=== PATIENT | male | born 1950 | race Caucasian/White ===

== ENCOUNTER → 2017-06-07 | Outpatient (RCR) | payer OTHER | END | disposition home or self-care (01) | LOC: CR3 05-08 06:00 | PROVIDERS: ATTEND Nurse Practitioner | DX: Z29.8 Encounter for other specified prophylactic measures (principal) ==

== ENCOUNTER 2017-07-07 15:23 | Outpatient (RCR) | payer OTHER | END 2017-07-09 | disposition home or self-care (01) | LOC: CR3 15:23 | PROVIDERS: ATTEND Nurse Practitioner | DX: Z29.8 Encounter for other specified prophylactic measures (principal) ==

== ENCOUNTER 2017-08-07 16:35 | Outpatient (RCR) | payer OTHER | END 2017-08-09 | disposition home or self-care (01) | LOC: CR3 16:35 | PROVIDERS: ATTEND Nurse Practitioner | DX: Z29.8 Encounter for other specified prophylactic measures (principal) ==

== ENCOUNTER 2017-09-08 17:32 | Outpatient (RCR) | payer OTHER | END 2017-09-10 | disposition home or self-care (01) | LOC: CR3 17:32 | PROVIDERS: ATTEND Nurse Practitioner | DX: Z29.8 Encounter for other specified prophylactic measures (principal) ==

== ENCOUNTER → 2017-10-11 | Outpatient (RCR) | payer OTHER | END | disposition home or self-care (01) | LOC: CR3 09-11 14:39 | PROVIDERS: ATTEND Nurse Practitioner | DX: Z29.8 Encounter for other specified prophylactic measures (principal) ==

== ENCOUNTER 2017-11-10 14:08 | Outpatient (RCR) | payer OTHER | END 2017-11-12 | disposition home or self-care (01) | LOC: CR3 14:08 | PROVIDERS: ATTEND Nurse Practitioner | DX: Z29.8 Encounter for other specified prophylactic measures (principal) ==

== ENCOUNTER → 2017-12-13 | Outpatient (RCR) | payer OTHER | END | disposition home or self-care (01) | LOC: CR3 11-13 14:00 | PROVIDERS: ATTEND Nurse Practitioner | DX: Z29.8 Encounter for other specified prophylactic measures (principal) ==

== ENCOUNTER 2018-01-12 14:53 | Outpatient (RCR) | payer OTHER | END 2018-01-14 | disposition home or self-care (01) | LOC: CR3 14:53 | PROVIDERS: ATTEND Nurse Practitioner | DX: Z29.8 Encounter for other specified prophylactic measures (principal) ==

== ENCOUNTER → 2018-02-14 | Outpatient (RCR) | payer OTHER | END | disposition home or self-care (01) | LOC: CR3 01-15 14:00 | PROVIDERS: ATTEND Nurse Practitioner | DX: Z29.8 Encounter for other specified prophylactic measures (principal) ==

== ENCOUNTER 2018-03-16 14:19 | Outpatient (RCR) | payer OTHER | END 2018-03-18 | disposition home or self-care (01) | LOC: CR3 14:19 | PROVIDERS: ATTEND Nurse Practitioner | DX: Z29.8 Encounter for other specified prophylactic measures (principal) ==

== ENCOUNTER → 2018-04-18 | Outpatient (RCR) | payer OTHER | END | disposition home or self-care (01) | LOC: CR3 03-19 14:00 | PROVIDERS: ATTEND Nurse Practitioner | DX: Z29.8 Encounter for other specified prophylactic measures (principal) ==

== ENCOUNTER 2018-05-18 14:53 | Outpatient (RCR) | payer OTHER | END 2018-05-20 | disposition home or self-care (01) | LOC: CR3 14:53 | PROVIDERS: ATTEND Nurse Practitioner | DX: Z29.8 Encounter for other specified prophylactic measures (principal) ==

== ENCOUNTER → 2018-06-20 | Outpatient (RCR) | payer OTHER | END | disposition home or self-care (01) | LOC: CR3 05-21 14:00 | PROVIDERS: ATTEND Nurse Practitioner | DX: Z29.8 Encounter for other specified prophylactic measures (principal) ==

== ENCOUNTER 2018-07-20 13:49 | Outpatient (RCR) | payer OTHER | END 2018-07-22 | disposition home or self-care (01) | LOC: CR3 13:49 | PROVIDERS: ATTEND Nurse Practitioner | DX: Z29.8 Encounter for other specified prophylactic measures (principal) ==

== ENCOUNTER → 2018-08-22 | Outpatient (RCR) | payer OTHER | END | disposition home or self-care (01) | LOC: CR3 07-23 14:00 | PROVIDERS: ATTEND Nurse Practitioner | DX: Z29.8 Encounter for other specified prophylactic measures (principal) ==

== ENCOUNTER 2018-09-21 14:35 | Outpatient (RCR) | payer OTHER | END 2018-09-23 | disposition home or self-care (01) | LOC: CR3 14:35 | PROVIDERS: ATTEND Nurse Practitioner | DX: Z29.8 Encounter for other specified prophylactic measures (principal) ==

== ENCOUNTER → 2018-10-24 | Outpatient (RCR) | payer OTHER | END | disposition home or self-care (01) | LOC: CR3 09-24 14:10 | PROVIDERS: ATTEND Nurse Practitioner | DX: Z29.8 Encounter for other specified prophylactic measures (principal) ==

== ENCOUNTER 2018-11-23 13:59 | Outpatient (RCR) | payer OTHER | END 2018-11-25 | disposition home or self-care (01) | LOC: CR3 13:59 | PROVIDERS: ATTEND Nurse Practitioner | DX: Z29.8 Encounter for other specified prophylactic measures (principal) ==

== ENCOUNTER → 2018-12-26 | Outpatient (RCR) | payer OTHER | END | disposition home or self-care (01) | LOC: CR3 11-26 14:00 | PROVIDERS: ATTEND Nurse Practitioner | DX: Z29.8 Encounter for other specified prophylactic measures (principal) ==

== ENCOUNTER 2019-01-23 14:54 | Outpatient (RCR) | payer OTHER | END 2019-01-27 | disposition home or self-care (01) | LOC: CR3 14:54 | PROVIDERS: ATTEND Nurse Practitioner | DX: Z29.8 Encounter for other specified prophylactic measures (principal) ==

== ENCOUNTER 2019-03-01 17:32 | Outpatient (RCR) | payer OTHER | END 2019-03-03 | disposition home or self-care (01) | LOC: CR3 17:32 | PROVIDERS: ATTEND Nurse Practitioner | DX: Z29.8 Encounter for other specified prophylactic measures (principal) ==

== ENCOUNTER → 2019-04-03 | Outpatient (RCR) | payer OTHER | END | disposition home or self-care (01) | LOC: CR3 03-04 14:00 | PROVIDERS: ATTEND Nurse Practitioner | DX: Z29.8 Encounter for other specified prophylactic measures (principal) ==

== ENCOUNTER 2019-04-22 15:05 | Outpatient (RCR) | payer OTHER | END 2019-05-05 | disposition home or self-care (01) | LOC: CR3 15:05 | PROVIDERS: ATTEND Nurse Practitioner | DX: Z29.8 Encounter for other specified prophylactic measures (principal) ==

== ENCOUNTER → 2020-05-20 | Outpatient (RCR) | payer OTHER | END | disposition home or self-care (01) | LOC: CR3 04-20 14:20 | PROVIDERS: ATTEND Nurse Practitioner | DX: Z29.8 Encounter for other specified prophylactic measures (principal) ==

== ENCOUNTER 2020-06-19 14:24 | Outpatient (RCR) | payer OTHER | END 2020-06-21 | disposition home or self-care (01) | LOC: CR3 14:24 | PROVIDERS: ATTEND Nurse Practitioner | DX: Z29.8 Encounter for other specified prophylactic measures (principal) ==

== ENCOUNTER → 2020-07-22 | Outpatient (RCR) | payer OTHER | END | disposition home or self-care (01) | LOC: CR3 06-22 14:49 | PROVIDERS: ATTEND Nurse Practitioner | DX: Z29.8 Encounter for other specified prophylactic measures (principal) ==

== ENCOUNTER → 2020-08-26 | Outpatient (RCR) | payer OTHER | LOC: CR3 07-27 10:29 | PROVIDERS: ATTEND Nurse Practitioner | DX: Z29.8 Encounter for other specified prophylactic measures (principal) ==

== ENCOUNTER 2020-09-25 13:57 | Outpatient (RCR) | payer OTHER | END 2020-09-27 | LOC: CR3 13:57 | PROVIDERS: ATTEND Nurse Practitioner | DX: Z29.8 Encounter for other specified prophylactic measures (principal) ==

== ENCOUNTER → 2020-10-28 | Outpatient (RCR) | payer OTHER | END | disposition home or self-care (01) | LOC: CR3 09-28 17:27 | PROVIDERS: ATTEND Nurse Practitioner | DX: Z29.8 Encounter for other specified prophylactic measures (principal) ==

== ENCOUNTER 2020-11-27 13:56 | Outpatient (RCR) | payer OTHER | END 2020-11-29 | disposition home or self-care (01) | LOC: CR3 13:56 | PROVIDERS: ATTEND Nurse Practitioner | DX: Z29.8 Encounter for other specified prophylactic measures (principal) ==

== ENCOUNTER 2020-12-28 15:04 | Outpatient (RCR) | payer OTHER | END 2021-01-01 | disposition home or self-care (01) | LOC: CR3 15:04 | PROVIDERS: ATTEND Nurse Practitioner | DX: Z29.8 Encounter for other specified prophylactic measures (principal) ==

== ENCOUNTER 2021-03-05 14:04 | Outpatient (RCR) | payer OTHER | END 2021-03-07 | disposition home or self-care (01) | LOC: CR3 14:04 | PROVIDERS: ATTEND Nurse Practitioner | DX: Z29.8 Encounter for other specified prophylactic measures (principal) ==

== ENCOUNTER → 2021-05-05 | Outpatient (RCR) | payer OTHER | END | disposition home or self-care (01) | LOC: CR3 03-15 15:22 | PROVIDERS: ATTEND Nurse Practitioner | DX: Z29.8 Encounter for other specified prophylactic measures (principal) ==

== ENCOUNTER 2021-07-02 15:20 | Outpatient (RCR) | payer OTHER | END 2021-07-05 | disposition home or self-care (01) | LOC: CR3 15:20 | PROVIDERS: ATTEND Nurse Practitioner | DX: Z29.8 Encounter for other specified prophylactic measures (principal) ==

== ENCOUNTER 2021-08-06 14:44 | Outpatient (RCR) | payer OTHER | END 2021-09-04 | disposition home or self-care (01) | LOC: CR3 14:44 | PROVIDERS: ATTEND Nurse Practitioner | DX: Z29.8 Encounter for other specified prophylactic measures (principal) ==

== ENCOUNTER 2021-12-03 16:10 | Outpatient (RCR) | payer OTHER | END 2021-12-05 | disposition home or self-care (01) | LOC: CR3 16:10 | PROVIDERS: ATTEND Nurse Practitioner | DX: Z29.8 Encounter for other specified prophylactic measures (principal) ==

== ENCOUNTER → 2022-01-05 | Outpatient (RCR) | payer OTHER | END | disposition home or self-care (01) | LOC: CR3 12-06 14:29 | PROVIDERS: ATTEND Nurse Practitioner | DX: Z29.8 Encounter for other specified prophylactic measures (principal) ==

== ENCOUNTER → 2022-03-07 | Outpatient (RCR) | payer OTHER | END | disposition home or self-care (01) | LOC: CR3 01-07 15:09 | PROVIDERS: ATTEND Nurse Practitioner | DX: Z29.8 Encounter for other specified prophylactic measures (principal) ==

== ENCOUNTER 2022-04-29 14:59 | Outpatient (RCR) | payer OTHER | END 2022-05-05 | disposition home or self-care (01) | LOC: CR3 14:59 | PROVIDERS: ATTEND Nurse Practitioner | DX: Z29.8 Encounter for other specified prophylactic measures (principal) ==

== ENCOUNTER 2022-07-01 15:43 | Outpatient (RCR) | payer OTHER | END 2022-07-05 | disposition home or self-care (01) | LOC: CR3 15:43 | PROVIDERS: ATTEND Nurse Practitioner | DX: Z29.8 Encounter for other specified prophylactic measures (principal) ==

== ENCOUNTER 2022-09-02 15:25 | Outpatient (RCR) | payer OTHER | END 2022-09-04 | disposition home or self-care (01) | LOC: CR3 15:25 | PROVIDERS: ATTEND Nurse Practitioner | DX: Z29.8 Encounter for other specified prophylactic measures (principal) ==

== ENCOUNTER → 2022-10-05 | Outpatient (RCR) | payer OTHER | END | disposition home or self-care (01) | LOC: CR3 09-05 15:40 | PROVIDERS: ATTEND Nurse Practitioner | DX: Z29.8 Encounter for other specified prophylactic measures (principal) ==

== ENCOUNTER 2022-11-04 16:26 | Outpatient (RCR) | payer OTHER | END 2022-12-05 | disposition home or self-care (01) | LOC: CR3 16:26 | PROVIDERS: ATTEND Nurse Practitioner | DX: Z01.89 Encounter for other specified special examinations (principal) ==

== ENCOUNTER 2022-12-05 07:57 | Outpatient (CLI) | payer OTHER ==
[~2022-12-05] VITALS: Ht 177.8 cm; Wt 60.3 kg
[2022-12-07] MEDS ORDERED: PRAV10TA PO (09:24)
[2022-12-07] MEDS ORDERED: ALEN70TA80 PO (09:25)
[2022-12-13] MEDS ORDERED: PRAV10TA PO (13:04)
[2022-12-13] MEDS ORDERED: CHOL12509 PO (13:04)
[2022-12-13] MEDS ORDERED: ALEN70TA80 PO (13:04)
[2022-12-13] MEDS ORDERED: CALC600T91 PO (13:04)
[2022-12-13] MEDS ORDERED: CYAN250010 PO (13:04)
[2022-12-13] MEDS ORDERED: VIT1CAPS PO (13:04)
[2022-12-13] MEDS ORDERED: VITA40TA PO (13:04)
[2022-12-13] MEDS ORDERED: TUME1CAP PO (13:04)
[2022-12-13] MEDS ORDERED: ACET600C5 PO (13:04)
== END 2022-12-13 13:15 | disposition home or self-care (01) ==
LOC: PREOP 07:57
PROVIDERS: ATTEND Surgery
DX: Z01.818 Encounter for other preprocedural examination (principal)

== ENCOUNTER → 2022-12-05 | Outpatient (CLI) | payer OTHER ==
[~2022-12-05] VITALS: Ht 180.3 cm; Wt 60.0 kg
[~2022-12-05] MED LIST: ALEN70TA80 PO; PRAV10TA PO
== END | disposition home or self-care (01) ==
LOC: PREOP 05:32
PROVIDERS: ATTEND Specialist
DX: Z01.818 Encounter for other preprocedural examination (principal)

== ENCOUNTER 2022-12-09 09:21 | Day surgery (SDC) | payer OTHER ==
[~2022-12-09] VITALS: Ht 180 cm; Wt 60.0 kg
[2022-12-09 09:45] VITALS: BP 167/86
[2022-12-09] MEDS ORDERED: LIDOCAINE PF 1% 2 ML VIAL IR PRN (10:00)
[2022-12-09] MEDS ORDERED: TIMOLOL 0.5% (CATARACTS) 0.3 ML BTL OU PRN (10:00)
[2022-12-09] MEDS ORDERED: MOXIFLOXACIN OPHTH SOLN 5 MG/ML 0.5 ML SYRINGE OP ONE (10:00)
[2022-12-09] MEDS ORDERED: POVIDONE IODINE OPHTH SOLN 5% 30 ML OP ONE (10:00)
[2022-12-09] MEDS: TETRACAINE 0.5% OPHTH SOLN 5 ML BTL OU PRN ×4 (10:01→10:17)
[2022-12-09] MEDS: PHENYLEPHRINE 10% OPHTH SOLN 5 ML BTL OU SCH ×3 (10:07→10:17)
[2022-12-09] MEDS: TROPICAMIDE 1% OPH SOLN (MYDRIACYL) 15 ML BTL OP SCH ×3 (10:11→10:17)
--- NOTE | 2022-12-09 10:23 | Ophthalmologist Pre-Op Note ---
Pre-Operative Progress Note H&P Reviewed The H&P was reviewed, patient examined and no changes noted. Date H&P Reviewed: Dec 09, 2022 Time H&P Reviewed: 10:23 Pre-Op Dx Cataract, Right Eye ANTOINE LING MD Dec 09, 2022 10:23
[2022-12-09] MEDS ORDERED: MIDAZOLAM INJ 2 MG/2 ML VIAL ONE (10:25)
--- NOTE | 2022-12-09 10:43 | Ophthalmology Operative Report ---
Cataract removal/placement IOL PREOPERATIVE DIAGNOSIS: Cataract Right Eye POSTOPERATIVE DIAGNOSIS: Cataract Right Eye PROCEDURE: Cataract removal and placement of posterior chamber implant, right eye SURGEON: Haim Ling ANESTHESIA: Topical with sedation COMPLICATIONS: None ESTIMATED BLOOD LOSS: Minimal DESCRIPTION OF PROCEDURE: After proper informed consent was obtained, the patient, a 72 male, was taken to the Operating Room and the right eye was anesthetized with tetracaine. The right eye was then prepped and draped in the usual manner. A wire lid speculum was placed. A paracentesis was made at the left hand position. Preservative free lidocaine was injected into the anterior chamber followed by viscoelastic. A clear corneal incision was made in the temporal position. A capsulorrhexis was preformed and the central nuclear and cortical material were removed. The posterior capsule was polished and Markie 21.5 CNA0T0 IOL was placed into the capsular bag. The residual viscoelastic was aspirated and balanced saline solution was injected into the anterior chamber. Moxifloxacin was injected into the anterior chamber. The wound was checked and found to be water tight. The patient tolerated the procedure well without complications. HAIM LING MD Dec 09, 2022 10:43
[2022-12-09 10:57] VITALS: BP 167/86
--- NOTE | 2022-12-09 12:47 | Anesthesia-General Post-Op ---
MAC Patient Condition Mental Status/LOC: Same as Preop Cardiovascular: Satisfactory Nausea/Vomiting: Absent Respiratory: Satisfactory Pain: Controlled Complications: Absent Post Op Complications Complications None Follow Up Care/Instructions Patient Instructions None needed. Anesthesiology Discharge Order Discharge Order Patient is doing well, no complaints, stable vital signs, no apparent adverse anesthesia problems. No complications reported per nursing. DENA CHU CRNA Dec 09, 2022 12:47
== END 2022-12-09 10:58 | disposition home or self-care (01) ==
LOC: SDC 09:21
PROVIDERS: ATTEND Specialist
DX: H25.9 Unspecified age-related cataract (principal); F17.200 Nicotine dependence, unspecified, uncomplicated

== ENCOUNTER 2022-12-16 09:59 | Outpatient (CLI) | payer OTHER ==
[~2022-12-16] VITALS: Ht 180 cm; Wt 60.3 kg
[~2022-12-16 09:59] MED LIST changes: +ACET600C5 PO; +CALC600T91 PO; +CHOL12509 PO; +CYAN250010 PO; +TUME1CAP PO; +VIT1CAPS PO; +VITA40TA PO
[2022-12-20] MEDS ORDERED: PANT40TA2 PO (10:11)
== END 2022-12-16 14:00 | disposition home or self-care (01) ==
LOC: PREOP 09:59
PROVIDERS: ATTEND Specialist
DX: Z01.818 Encounter for other preprocedural examination (principal)

== ENCOUNTER 2022-12-20 07:45 | Day surgery (SDC) | payer OTHER ==
[~2022-12-20] VITALS: Ht 177.3 cm; Wt 60.3 kg
[2022-12-20] MEDS ORDERED: LACTATED RINGERS 1,000 ML 1,000 ML IV STA (07:48)
[2022-12-20] MEDS ORDERED: HURRICAINE EXT TUBE (BENZOCAINE) XX PRN (08:00)
[2022-12-20 08:32] VITALS: BP 143/83
--- NOTE | 2022-12-20 09:02 | Progress Note-Pre Operative ---
Pre-Operative Progress Note Date H&P Reviewed: Dec 20, 2022 Time H&P Reviewed: 09:01 History & Physical: H&P Reviewed, Patient Examed, No changes noted Pre-Operative Diagnosis: Unexplained Weight Loss SANJAY COLIN DO Dec 20, 2022 09:02
[2022-12-20 10:05] VITALS: BP 91/59
--- NOTE | 2022-12-20 10:06 | Progress Note-Post Operative ---
Post-Operative Progess Note Surgeon (s)/Bottom Polisher (s) Surgeon SANJAY COLIN DO Bottom Polisher: n/a Pre-Operative Diagnosis Unexplained Weight Loss Post-Operative Diagnosis Duodenal healing ulcer, diverticulosis, anorectal mucosal change Procedure & Operative Findings Date of Procedure 12/20/22 Procedure Performed/Findings EGD with biopsies, colonoscopy with cold biopsy Anesthesia Type per WEB ENGINEER Estimated Blood Loss Estimated blood loss (mL): none Specimens/Packing Specimens Removed duodenal healing ulcer x1, antrum x1, GE junction x1, anal-rectal junction x1 SANJAY COLIN DO Dec 20, 2022 10:06
--- NOTE | 2022-12-20 10:09 | Discharge Inst-Simple/Standard ---
Discharge Inst-Standard Patient Instructions/Follow Up Plan of Care/Instructions/FU: 2 weeks юлия Activity as Tolerated: Yes Discharge Diet: Regular Diet SANJAY COLIN DO Dec 20, 2022 10:09
[2022-12-20] MEDS ORDERED: PANT40TA2 PO ×2 (10:11)
[2022-12-20 10:15] VITALS: BP 116/70
[2022-12-20 10:40] VITALS: BP 91/59
--- NOTE | 2022-12-20 12:59 | Anesthesia-General Post-Op ---
MAC Patient Condition Mental Status/LOC: Same as Preop Cardiovascular: Satisfactory Nausea/Vomiting: Absent Respiratory: Satisfactory Pain: Controlled Complications: Absent Post Op Complications Complications None Follow Up Care/Instructions Patient Instructions None needed. Anesthesiology Discharge Order Discharge Order Patient is doing well, no complaints, stable vital signs, no apparent adverse anesthesia problems. No complications reported per nursing. DENA CHU CRNA Dec 20, 2022 12:58
--- NOTE | 2022-12-20 16:52 | OPERATIVE REPORT ---
DATE OF SERVICE: 12/20/2022 PREOPERATIVE DIAGNOSIS: Unintentional weight loss. POSTOPERATIVE DIAGNOSES: Duodenal healing ulcer, diverticulosis, anorectal mucosal change. PROCEDURES: EGD with biopsies, colonoscopy with cold biopsy. SURGEON: Sanjay Fang DO ANESTHESIA: Per GATE ATTENDANT. ESTIMATED BLOOD LOSS: Scant. COMPLICATIONS: None. INDICATIONS: The patient is a 72-year-old male with unintentional weight loss. He understands risks and benefits of procedures and wishes to proceed. Consent was signed in chart. DESCRIPTION OF PROCEDURE: The patient was taken to the endoscopy suite, placed in left lateral recumbent position. Timeout was performed. Scope was inserted in the mouth, down the esophagus, stomach and the duodenum without difficulty. There were no polyps, masses or ulcerations. Within the distal portion of the duodenum and visualizing the proximal portion, appearance of healing ulcer was present. Biopsy of this area was obtained. Scope was then slowly retracted back into stomach where it was further insufflated. Biopsy of the antrum was obtained. No polyps, masses or ulcerations. Scope was retroflexed, noting no other pathology. Scope was returned to its normal position, slowly withdrawn until distal esophagus. Biopsy of GE junction was obtained. Scope was then slowly retracted back until completely removed, noting no other pathology. Digital rectal exam was performed, noting a slight mucosal change at the anorectal junction. No palpable polyps, masses or ulcerations. Scope was inserted in the rectum and advanced all the way to the cecum with minimal difficulty. Prep was adequate. Scope was slowly retracted back. No polyps, masses or ulcerations in the cecum, ascending, transverse, descending and sigmoid colon. Some diverticulosis was present in the sigmoid colon. Once in the rectum, scope was retroflexed, noting anorectal mucosal change. Cold biopsy was obtained. Scope was then returned to normal position, slowly withdrawn until completely removed, noting no other pathology. The patient tolerated the procedure well without complications, taken to recovery room in stable condition. RECOMMENDATIONS: The patient will follow up on pathology results. We make sure he is on Protonix 40 mg daily. We will see how symptoms are doing. We would consider further imaging studies to further evaluate. The patient will need repeat colonoscopy on an as needed basis. Job ID: [id number] DocumentID: [id number] Dictated Date: 12/20/2022 10:06:50 Hand Tier Date: 12/20/2022 16:50:00 Dictated By: SANJAY FANG DO
== END 2022-12-20 10:45 | disposition home or self-care (01) ==
LOC: ENDO 07:45
PROVIDERS: ATTEND Surgery
DX: K57.30 Diverticulosis of large intestine without perforation or abscess without bleeding (principal); K26.9 Duodenal ulcer, unspecified as acute or chronic, without hemorrhage or perforation; K62.89 Other specified diseases of anus and rectum; F17.210 Nicotine dependence, cigarettes, uncomplicated
CPT/HCPCS: 88305

== ENCOUNTER 2022-12-23 07:37 | Day surgery (SDC) | payer OTHER ==
[~2022-12-23] VITALS: Ht 180 cm; Wt 60.3 kg
[2022-12-23 07:35] VITALS: BP 166/93
[~2022-12-23 07:37] MED LIST changes: +PANT40TA2 PO
[2022-12-23] MEDS: TETRACAINE 0.5% OPHTH SOLN 5 ML BTL OU PRN ×4 (07:56→08:11)
[2022-12-23] MEDS: PHENYLEPHRINE 10% OPHTH SOLN 5 ML BTL OU SCH ×3 (08:00→08:11)
[2022-12-23] MEDS ORDERED: POVIDONE IODINE OPHTH SOLN 5% 30 ML OP ONE (08:00)
[2022-12-23] MEDS ORDERED: TIMOLOL 0.5% (CATARACTS) 0.3 ML BTL OU PRN (08:00)
[2022-12-23] MEDS ORDERED: LIDOCAINE PF 1% 2 ML VIAL IR PRN (08:00)
[2022-12-23] MEDS: TROPICAMIDE 1% OPH SOLN (MYDRIACYL) 15 ML BTL OP SCH ×3 (08:00→08:11)
[2022-12-23] MEDS ORDERED: MOXIFLOXACIN OPHTH SOLN 5 MG/ML 0.5 ML SYRINGE OP ONE (08:00)
--- NOTE | 2022-12-23 08:44 | Ophthalmologist Pre-Op Note ---
Pre-Operative Progress Note H&P Reviewed The H&P was reviewed, patient examined and no changes noted. Date H&P Reviewed: Dec 23, 2022 Time H&P Reviewed: 08:43 Pre-Op Dx Cataract, Left Eye ANTOINE LING MD Dec 23, 2022 08:43
[2022-12-23] MEDS ORDERED: MIDAZOLAM INJ 2 MG/2 ML VIAL ONE (08:45)
--- NOTE | 2022-12-23 09:03 | Ophthalmology Operative Report ---
Cataract removal/placement IOL PREOPERATIVE DIAGNOSIS: Cataract Left Eye POSTOPERATIVE DIAGNOSIS: Cataract Left Eye PROCEDURE: Cataract removal and placement of posterior chamber implant, left eye SURGEON: Haim Ling ANESTHESIA: Topical with sedation COMPLICATIONS: None ESTIMATED BLOOD LOSS: Minimal DESCRIPTION OF PROCEDURE: After proper informed consent was obtained, the patient, a 72 male, was taken to the Operating Room and the left eye was anesthetized with tetracaine. The left eye was then prepped and draped in the usual manner. A wire lid speculum was placed. A paracentesis was made at the left hand position. Preservative free lidocaine was injected into the anterior chamber followed by viscoelastic. A clear corneal incision was made in the temporal position. A capsulorrhexis was preformed and the central nuclear and cortical material were removed. The posterior capsule was polished and an Markie 20.5 CNA0T0 was placed into the capsular bag. The residual viscoelastic was aspirated and balanced saline solution was injected into the anterior chamber. Moxifloxacin was injected into the anterior chamber. The wound was checked and found to be water tight. The patient tolerated the procedure well without complications. HAIM LING MD Dec 23, 2022 09:03
[2022-12-23 09:15] VITALS: BP 157/89
--- NOTE | 2022-12-23 14:23 | Anesthesia-General Post-Op ---
MAC Patient Condition Mental Status/LOC: Same as Preop Cardiovascular: Satisfactory Nausea/Vomiting: Absent Respiratory: Satisfactory Pain: Controlled Complications: Absent Post Op Complications Complications None Follow Up Care/Instructions Patient Instructions None needed. Anesthesiology Discharge Order Discharge Order Patient is doing well, no complaints, stable vital signs, no apparent adverse anesthesia problems. No complications reported per nursing. DOMINIC DE LA CRUZ CRNA Dec 23, 2022 14:23
== END 2022-12-23 09:16 ==
LOC: SDC 07:37
PROVIDERS: ATTEND Specialist
DX: H26.9 Unspecified cataract (principal)